=== PATIENT | male | born 1955 | race Caucasian/White ===

== ENCOUNTER → 2017-07-18 | Day surgery (SDC) | payer OTHER ==
[~2017-07-18] VITALS: Ht 170.2 cm; Wt 73.0 kg
[~2017-07-18] MED LIST: FISH OIL1 CAP PO; GLUC750T10 PO; IBU200 PO; LIDOCAINE/SOD BICARB 8.4% SYR ID ONE; MIDAZOLAM 2 MG/2 ML VIAL IVP ONE; NORMOSOL R SOLN(*) 1000 ML BAG 1,000 ML IV PRN; PROPOFOL(*)1000 MG/100 ML VIAL 100 ML ONE; TAM4 PO
[2017-07-18 09:35] VITALS: BP 143/86
[2017-07-18 11:29] VITALS: BP 97/68
[2017-07-18 11:45] VITALS: BP 102/68
[2017-07-18 12:00] VITALS: BP 111/82
[2017-07-18 12:12] VITALS: BP 121/87
[2017-07-18 12:14] VITALS: BP 112/81
== END ==
LOC: OR 00:34
PROVIDERS: ATTEND Family Medicine
DX: Z12.11 Encounter for screening for malignant neoplasm of colon (principal)
CPT/HCPCS: 00812; 45378; J2704

== ENCOUNTER → 2017-08-14 | Outpatient (REF) | payer OTHER ==
[~2017-08-14] MED LIST changes: -LIDOCAINE/SOD BICARB 8.4% SYR ID ONE; -MIDAZOLAM 2 MG/2 ML VIAL IVP ONE; -NORMOSOL R SOLN(*) 1000 ML BAG 1,000 ML IV PRN; -PROPOFOL(*)1000 MG/100 ML VIAL 100 ML ONE
== END ==
LOC: ZZSENDIN 17:30
PROVIDERS: ATTEND Urology
DX: S31.109A Unspecified open wound of abdominal wall, unspecified quadrant without penetration into peritoneal cavity, initial encounter (principal)
CPT/HCPCS: 87070; 87073

== ENCOUNTER → 2018-09-08 | Emergency (ER) | payer OTHER | LOC: ER 19:05 | DX: S81.811A Laceration without foreign body, right lower leg, initial encounter (principal) ==